=== PATIENT | male | born 1950 | race Caucasian/White ===

== ENCOUNTER 2021-09-02 06:59 | Day surgery (SDC) | payer MEDICARE ==
[~2021-09-02] VITALS: Ht 177.8 cm; Wt 63.2 kg
[2021-09-02] VITALS (19 sets, daily range): BP systolic 127–172; BP diastolic 48–89
[2021-09-02] MEDS ORDERED: normal saline 1000ml 1,000 ML IV PRN (07:25)
[2021-09-02] MEDS ORDERED: IBUP-2417 PO (07:29)
[2021-09-02] MEDS ORDERED: NIFE30TA95 PO (07:29)
[2021-09-02] MEDS ORDERED: ACET-1025 PO (07:29)
[2021-09-02] MEDS ORDERED: ROSU10TA28 PO (07:29)
[2021-09-02] MEDS ORDERED: MORP-92 PO (07:29)
[2021-09-02 08:06] LABS: BASOPHILS # (AUTO) 0.1 X10'3 (0-0.2); BASOPHILS % (AUTO) 0.4 % (0-1); EOSINOPHILS # (AUTO) 0.2 X10'3 (0-0.9); EOSINOPHILS % (AUTO) 1.5 % (0-6); HEMATOCRIT 44.3 % (42.0-52.0); HEMOGLOBIN 14.9 g/dl (14.0-17.9); LYMPHOCYTES % (AUTO) 7.2 % (21-51); MEAN CORPUSCULAR HEMOGLOBIN 31.9 PG (27.0-31.0); MEAN CORPUSCULAR HGB CONC 33.7 g/dL (33.0-36.5); MEAN CORPUSCULAR VOLUME 94.8 FL (78-98); MEAN PLATELET VOLUME 8.5 FL (7.4-10.4); MONOCYTES # (AUTO) 0.9 X10'3 (0-0.9); MONOCYTES % (AUTO) 6.4 % (2-12); NEUTROPHILS # (AUTO) 12.2 X10'3 (1.8-7.7); NEUTROPHILS % (AUTO) 84.5 % (42-75); PLATELET COUNT 300 X10'3 (140-440); RED BLOOD COUNT 4.68 X10'6 (4.70-6.10); RED CELL DISTRIBUTION WIDTH 13.9 % (11.5-14.5); WHITE BLOOD COUNT 14.4 X10'3 (4.5-11.0)
[2021-09-02] MEDS ORDERED: sodium chloride 0.45% 1,000 ML IV SCH (08:30)
[2021-09-02] MEDS ORDERED: midazolam 1 mg/ML 2ml injection ONE (08:34)
[2021-09-02] MEDS ORDERED: fentaNYL/PF 50MCG/1 ML 2ML syringe ONE (08:34)
[2021-09-02] MEDS ORDERED: LIDOcaine 1%/PF 5ML 10 MG/ML VIAL ONE (09:23)
[2021-09-02] MEDS ORDERED: morphine ER 15mg tablet PO ONE (12:20)
--- NOTE | 2021-09-02 12:20 | NUR ---
pt requesting pain meds for chronic back pain. called Dr. dunlap he ordered MS Er 15mg once. called pharmacy to bring med to [facility].
== END 2021-09-02 13:45 | disposition home or self-care (01) ==
LOC: SSTAY O 06:59
PROVIDERS: ATTEND Radiology Diagnostic Radiology
DX: R91.8 Other nonspecific abnormal finding of lung field (principal); C78.01 Secondary malignant neoplasm of right lung; J44.9 Chronic obstructive pulmonary disease, unspecified; F17.210 Nicotine dependence, cigarettes, uncomplicated; Z85.46 Personal history of malignant neoplasm of prostate; Z85.528 Personal history of other malignant neoplasm of kidney; Z87.01 Personal history of pneumonia (recurrent); Z72.89 Other problems related to lifestyle; Z79.899 Other long term (current) drug therapy; Z79.01 Long term (current) use of anticoagulants; Z90.5 Acquired absence of kidney; Z80.42 Family history of malignant neoplasm of prostate; Z80.3 Family history of malignant neoplasm of breast
CPT/HCPCS: 32408; 36415; 71045; 85025; 85610; 99152; 99153; J2250; J3010; J3490; 77012; 88305; 88341; 88342

== ENCOUNTER 2021-09-14 06:26 | Day surgery (SDC) | payer MEDICARE ==
[~2021-09-14] VITALS: Ht 177.8 cm; Wt 60.9 kg
[~2021-09-14 06:26] MED LIST: ACET-1025 PO; IBUP-2417 PO; MORP-92 PO; NIFE30TA95 PO; ROSU10TA28 PO
[2021-09-14] MEDS ORDERED: normal saline 1000ml 1,000 ML IV PRN (07:00)
[2021-09-14] MEDS ORDERED: HYDR-3964 (07:05)
[2021-09-14] MEDS ORDERED: SENN-263 PO (07:05)
[2021-09-14] MEDS ORDERED: BISA-155 PO (07:06)
[2021-09-14 07:30] VITALS: BP_SYST 118; BP_DIAS 66; BP_DIAS 88
[2021-09-14] MEDS ORDERED: heparin sodium, porcine/PF 100unit/ml 5ML syringe ONE (08:16)
[2021-09-14] MEDS ORDERED: LIDOcaine 1%/PF 5ML 10 MG/ML VIAL ONE ×2 (08:16→09:13)
[2021-09-14] MEDS ORDERED: midazolam 1 mg/ML 2ml injection ONE (08:16)
[2021-09-14] MEDS ORDERED: fentaNYL/PF 50MCG/1 ML 2ML syringe ONE (08:16)
[2021-09-14 09:37] VITALS: BP 133/73
[2021-09-14 09:52] VITALS: BP 133/69
[2021-09-14 10:07] VITALS: BP 128/67
[2021-09-14 10:22] VITALS: BP 123/61
[2021-09-15] MEDS ORDERED: pneumococcal 23-VAL P-sac vacc 25 mcg/0.5ml vial IMVAC ONE (08:20)
[2021-09-15] MEDS ORDERED: FLU VACC QS2021-22(6MOS UP)/PF 60 MCG/0.5 ML SYRINGE IM ONE (08:30)
== END 2021-09-14 10:35 | disposition home or self-care (01) ==
LOC: SSTAY O 06:26
PROVIDERS: ATTEND Radiology Vascular & Interventional Radiology
DX: C64.1 Malignant neoplasm of right kidney, except renal pelvis (principal); C79.51 Secondary malignant neoplasm of bone; D47.2 Monoclonal gammopathy; Z85.46 Personal history of malignant neoplasm of prostate; Z87.01 Personal history of pneumonia (recurrent); F17.210 Nicotine dependence, cigarettes, uncomplicated; Z72.89 Other problems related to lifestyle; Z77.090 Contact with and (suspected) exposure to asbestos; Z79.899 Other long term (current) drug therapy; Z80.42 Family history of malignant neoplasm of prostate; Z80.3 Family history of malignant neoplasm of breast
CPT/HCPCS: 36561; 76937; 77001; 99152; 99153; C1769; C1788; C1894; J1642; J2250; J3010; J3490; J7030

== ENCOUNTER 2021-10-04 08:10 | Emergency (ER) | payer MEDICARE ==
[~2021-10-04] VITALS: Ht 177.8 cm; Wt 68.0 kg
[~2021-10-04 08:10] MED LIST changes: -ACET-1025 PO; +BISA-155 PO; +HYDR-3964; -IBUP-2417 PO; +SENN-263 PO
[2021-10-04] MEDS ORDERED: morphine 4 MG/ML inj SYRINge IV ONE ×2 (08:50→12:40)
[2021-10-04] MEDS ORDERED: ondansetron/PF 4mg/2ml inj IV ONE (08:50)
[2021-10-04] MEDS ORDERED: normal saline 1000ML IV soln IVB ONE (08:50)
--- NOTE | 2021-10-04 08:53 | NUR ---
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 C/O INTRACTABLE BACK PAIN AND LEFT LEG PAIN. PATIENT HAS RECENTLY STARTED CHEMOTHERAPY AND IS HAVING DIARRHEA X SEVERAL DAYS. PATIENT FEELING WEAK AND DEHYDRATED. ORAL PAIN MEDS ARE NOT EFFECTIVE AT CONTROLLING THE PAIN.
[2021-10-04 09:08] LABS: BASOPHILS % (AUTO) 0.1 % (0-1); EOSINOPHILS # (AUTO) 0.1 X10'3 (0-0.9); EOSINOPHILS % (AUTO) 0.9 % (0-6); HEMATOCRIT 39.6 % (42.0-52.0); HEMOGLOBIN 13.4 g/dl (14.0-17.9); LYMPHOCYTES # (AUTO) 0.4 X10'3 (1.1-4.8); LYMPHOCYTES % (AUTO) 2.8 % (21-51); MEAN CORPUSCULAR HEMOGLOBIN 31.7 PG (27.0-31.0); MEAN CORPUSCULAR HGB CONC 33.9 g/dL (33.0-36.5); MEAN CORPUSCULAR VOLUME 93.4 FL (78-98); MEAN PLATELET VOLUME 8.1 FL (7.4-10.4); MONOCYTES % (AUTO) 6.6 % (2-12); NEUTROPHILS % (AUTO) 89.6 % (42-75); PLATELET COUNT 262 X10'3 (140-440); RED BLOOD COUNT 4.24 X10'6 (4.70-6.10); RED CELL DISTRIBUTION WIDTH 14.1 % (11.5-14.5); WHITE BLOOD COUNT 15.6 X10'3 (4.5-11.0)
[2021-10-04 09:24] LABS: ALANINE AMINOTRANSFERASE 18 U/L (12-78); ALBUMIN 2.8 G/DL (3.4-5.0); ALBUMIN/GLOBULIN RATIO 0.7 (1.1-1.5); ALKALINE PHOSPHATASE 73 IU/L (46-116); ANION GAP 7 (8-16); ASPARTATE AMINO TRANSFERASE 20 U/L (10-37); BILIRUBIN,TOTAL 0.4 MG/DL (0.1-1.0); BLOOD UREA NITROGEN 24 MG/DL (7-18); CALCIUM 9.4 MG/DL (8.5-10.1); CHLORIDE 94 MMOL/L (99-107); GLUCOSE 107 MG/DL (70-104); MAGNESIUM 1.9 MG/DL (1.5-2.4); SODIUM 129 MMOL/L (135-145); TOTAL CARBON DIOXIDE 28.4 MMOL/L (24-32); TOTAL PROTEIN 6.8 G/DL (6.4-8.2); eGFR 60 ML/MIN
[2021-10-04 12:28] VITALS: BP 137/67
== END 2021-10-04 14:09 | disposition home or self-care (01) ==
LOC: ER 08:11
DX: C64.1 Malignant neoplasm of right kidney, except renal pelvis (principal); R19.7 Diarrhea, unspecified; M54.9 Dorsalgia, unspecified; R10.84 Generalized abdominal pain; Z79.82 Long term (current) use of aspirin; Z79.899 Other long term (current) drug therapy; Z88.6 Allergy status to analgesic agent
CPT/HCPCS: 36415; 74176; 80053; 83735; 85025; 96361; 96374; 96375; 96376; 99284; J2270; J2405; J7030; 99285